=== PATIENT | male | born 1995 | race Two or more races ===

== ENCOUNTER 2022-12-17 19:22 | Emergency (ER) | payer OTHER ==
[2022-12-17 19:38] VITALS: BP 152/109; PULSE 109; RESP 18; TEMP 97.8; BMI 26.6
[2022-12-17] MEDS ORDERED: IBUPROFEN 600 MG TABLET (FP) PO ONE (19:52)
[2022-12-17] MEDS ORDERED: DIPHTH,PERTUSS(ACELL),TET 0.5 ML DISP.SYRIN IM ONE ×2 (19:52→20:01)
[2022-12-17] MEDS ORDERED: ACETAMINOPHEN 500 MG TABLET (FP) PO ONE (19:58)
[2022-12-17] MEDS ORDERED: ACETAMINOPHEN 500 MG TABLET (FP) ONE (20:01)
== END 2022-12-17 21:54 | disposition home or self-care (01) ==
LOC: FER 19:22
PROC: 3E0234Z Introduction of Serum, Toxoid and Vaccine into Muscle, Percutaneous Approach (ICD-10-PCS; principal; 2022-12-17)
DX: S50.312A Abrasion of left elbow, initial encounter (principal); S60.511A Abrasion of right hand, initial encounter; S06.0X0A Concussion without loss of consciousness, initial encounter; S80.212A Abrasion, left knee, initial encounter; M25.562 Pain in left knee; M79.641 Pain in right hand; R42 Dizziness and giddiness; W01.198A Fall on same level from slipping, tripping and stumbling with subsequent striking against other object, initial encounter
CPT/HCPCS: 73130-TC-RT-FY; 73560-TC-LT-FY; 90715; 99284-25

== ENCOUNTER 2023-01-28 17:56 | Emergency (ER) | payer OTHER ==
[2023-01-28 18:23] VITALS: BP 157/102; PULSE 88; RESP 16; TEMP 97.3; BMI 27.0
== END 2023-01-28 19:05 | disposition home or self-care (01) ==
LOC: FER 17:56
DX: S69.92XA Unspecified injury of left wrist, hand and finger(s), initial encounter (principal); M79.642 Pain in left hand; R22.32 Localized swelling, mass and lump, left upper limb; W18.39XA Other fall on same level, initial encounter
CPT/HCPCS: 73110-TC-LT-FY; 73130-TC-LT-FY; 99283-25

== ENCOUNTER 2023-10-28 07:12 | Emergency (ER) | payer OTHER ==
[2023-10-28 07:29] VITALS: RESP 16; TEMP 98.4; BMI 26.1
[2023-10-28 07:39] VITALS: BP 157/111; PULSE 78
== END 2023-10-28 07:41 | disposition home or self-care (01) ==
LOC: FER 07:12
DX: R03.0 Elevated blood-pressure reading, without diagnosis of hypertension (principal); Z77.21 Contact with and (suspected) exposure to potentially hazardous body fluids
CPT/HCPCS: 99283-25

== ENCOUNTER 2023-12-25 06:28 | Emergency (ER) | payer OTHER ==
[2023-12-25 07:01] VITALS: BP 159/99; PULSE 84; RESP 18; TEMP 98.1; BMI 25.4
== END 2023-12-25 08:09 | disposition home or self-care (01) ==
LOC: FER 06:28
DX: J18.9 Pneumonia, unspecified organism (principal); T59.3X3A Toxic effect of lacrimogenic gas, assault, initial encounter; Y35.811A Legal intervention involving manhandling, law enforcement official injured, initial encounter
CPT/HCPCS: 99283-25